=== PATIENT | male | born 1980 | race Caucasian/White ===

== ENCOUNTER 2021-11-19 09:32 | Emergency (ER) | payer MEDICAID, SELFPAY ==
[~2021-11-19] VITALS: Ht 182.9 cm; Wt 204.1 kg
[~2021-11-19 09:32] MED LIST: ASCO500T20 PO; CHOL500052 PO; LISI10TA29 PO; ZINC50TA69 PO
[2021-11-19 09:38] VITALS: BP_SYST 145
--- NOTE | 2021-11-19 09:39 | NUR ---
Patient brought ambulatory to room 6 per broker in charge for triage.
--- NOTE | 2021-11-19 09:40 | NUR ---
Dr Tovar to bedside to assess patient
--- NOTE | 2021-11-19 09:42 | NUR ---
Urine cup provided for sample
[2021-11-19] MEDS ORDERED: METF-518 PO (09:46)
[2021-11-19] MEDS ORDERED: LISI10TA29 PO (09:47)
--- NOTE | 2021-11-19 09:48 | NUR ---
Medication reconciliation completed with information provided by patient. Any prior medication reconciliation on file was reviewed and corrected.
--- NOTE | 2021-11-19 10:00 | NUR ---
Patient updated re what he is waiting for, which is ultrasound and lab test results.
[2021-11-19 10:12] LABS: BASOPHILS % (AUTO) 0.4 % (0.0-2.0); EOSINOPHILS % (AUTO) 0.4 % (0.0-4.0); HEMATOCRIT 45.8 % (36-54); HEMOGLOBIN 15.3 g/dL (14.0-18.0); LYMPHOCYTES # (AUTO) 1.8 K/uL (1.0-5.5); LYMPHOCYTES % (AUTO) 18.2 % (20.5-51.5); MEAN CORPUSCULAR HEMOGLOBIN 29 pg (27-31); MEAN CORPUSCULAR HGB CONC 34 % (32-36); MEAN CORPUSCULAR VOLUME 87 fL (79.0-98.0); MONOCYTES # (AUTO) 0.6 K/uL (0.0-1.0); MONOCYTES % (AUTO) 6.2 % (1.7-9.3); NEUTROPHILS # (AUTO) 7.3 K/uL (1.8-7.7); NEUTROPHILS % (AUTO) 74.8 % (40.0-70.0); PLATELET COUNT (AUTO) 253 K/uL (130-430); RED BLOOD CELL COUNT(AUTO) 5.26 MIL/uL (4.2-6.2); RED CELL DISTRIBUTION WIDTH 13.8 % (9.0-15.0); WHITE BLOOD COUNT (AUTO) 9.7 K/uL (4.8-10.8)
[2021-11-19 10:18] LABS: CALCIUM 9.6 mg/dL (8.4-11.0); CREATININE 1.13 mg/dL (0.55-1.30); POTASSIUM 4.2 mmol/L (3.5-5.1)
[2021-11-19 10:19] LABS: BILIRUBIN,URINE NEGATIVE (NEGATIVE); BLOOD, URINE NEGATIVE (NEGATIVE); CLARITY/URINE CLEAR (CLEAR); COLOR,URINE YELLOW (YELLOW); GLUCOSE,URINE NEGATIVE (NEGATIVE); KETONES,URINE NEGATIVE (NEGATIVE); LEUKOCYTE ESTERASE ,URINE NEGATIVE (NEGATIVE); NITRITE, URINE NEGATIVE (NEGATIVE); PROTEIN URINE NEGATIVE (NEGATIVE); UROBILINOGEN,URINE 0.2 (0.2-1.0)
[2021-11-19 10:22] LABS: ALBUMIN 3.6 g/dL (3.4-4.8); C-REACTIVE PROTEIN QUANT 2.7 mg/dL (0-0.5); TOTAL BILIRUBIN 0.4 mg/dL (0.0-1.0)
--- NOTE | 2021-11-19 10:45 | NUR ---
autobody technician to bedside for diagnostic exam
--- NOTE | 2021-11-19 11:15 | NUR ---
Patient given written and verbal discharge instructions and verbalizes understanding. ER MD discussed with patient the results and treatment provided. Patient in stable condition. ID arm band removed. Paper rx of Motrin and [place] given. Patient educated on pain management and to follow up with PMD. Opportunity for questions provided and answered. Medication side effect fact sheet provided.
[2021-11-19 11:18] VITALS: BP_SYST 145
== END 2021-11-19 11:18 | disposition home or self-care (01) ==
LOC: SED 09:32
DX: K80.50 Calculus of bile duct without cholangitis or cholecystitis without obstruction (principal); I10 Essential (primary) hypertension; Z79.84 Long term (current) use of oral hypoglycemic drugs; Z79.899 Other long term (current) drug therapy
CPT/HCPCS: 36415; 76700-TC; 80053; 81003; 82150; 83605; 83690; 84484; 85025; 86140; 99284